=== PATIENT | female | born 1985 | race Caucasian/White ===

== ENCOUNTER 2017-03-08 12:45 | Outpatient (CLI) | payer MEDICAID ==
[~2017-03-08] VITALS: Ht 167.6 cm; Wt 67.0 kg
[2017-03-08 13:43] VITALS: BP 103/56
== END 2017-03-08 15:17 | disposition home or self-care (01) ==
LOC: LDOP 12:45
PROVIDERS: ATTEND Obstetrics & Gynecology
DX: O26.893 Other specified pregnancy related conditions, third trimester (principal); M54.9 Dorsalgia, unspecified; R10.30 Lower abdominal pain, unspecified; H53.8 Other visual disturbances; Z3A.34 34 weeks gestation of pregnancy
CPT/HCPCS: 59025; 99201; G0463

== ENCOUNTER 2017-03-21 16:37 | Outpatient (CLI) | payer MEDICAID ==
[~2017-03-21] VITALS: Ht 167.6 cm; Wt 67.3 kg
[2017-03-21 17:07] VITALS: BP 113/64
== END 2017-03-21 18:41 | disposition home or self-care (01) ==
LOC: LDOP 16:37
PROVIDERS: ATTEND Obstetrics & Gynecology
DX: O62.9 Abnormality of forces of labor, unspecified (principal); Z3A.36 36 weeks gestation of pregnancy
CPT/HCPCS: 59025; 81003; 87086; 99211; G0463

== ENCOUNTER 2017-04-08 02:23 | Inpatient (IN) | payer MEDICAID ==
[~2017-04-08] VITALS: Ht 167.6 cm; Wt 68.3 kg
[2017-04-08] MEDS ORDERED: OXYTOCIN 30U/ 0.9% NaCL 500ML 500 ML IV SCH (02:50)
[2017-04-08] MEDS ORDERED: LACTATED RINGERS 1,000 ML IV SCH (02:50)
[2017-04-08] MEDS ORDERED: SODIUM CITRATE/CITRIC ACID 30 ML UDC ONE (02:58)
[2017-04-08] MEDS ORDERED: METOCLOPRAMIDE 5 MG/ML, 2ML ONE (02:58)
[2017-04-08 03:00] VITALS: BP 125/73
[2017-04-08] MEDS ORDERED: LACTATED RINGERS 1,000 ML IVBOLUS ONE (03:00)
[2017-04-08] MEDS ORDERED: CALCIUM CARBONATE 500 MG TAB.CHEW PO PRN ×2 (03:00→05:30)
[2017-04-08] MEDS ORDERED: CEFAZOLIN PMX 1GM/50ML 50 ML IVPB ONE (03:00)
[2017-04-08] MEDS ORDERED: ONDANSETRON 2MG/ML, 2ML IVPush ONE (03:00)
[2017-04-08] MEDS ORDERED: SODIUM CITRATE/CITRIC ACID 30 ML UDC PO ONE (03:00)
[2017-04-08] MEDS ORDERED: METOCLOPRAMIDE 5 MG/ML, 2ML IV ONE (03:00)
[2017-04-08 03:16] LABS: HEMATOCRIT 32.4 % (34.6-47.8); HEMOGLOBIN 10.9 g/dL (11.7-16.4); WHITE BLOOD COUNT 9.7 x10^3/uL (3.4-10)
[2017-04-08] MEDS ORDERED: FENTANYL PF 100 MCG/2ML ONE (03:19)
[2017-04-08] MEDS ORDERED: OXYTOCIN 30U/ 0.9% NaCL 500ML 500 ML ONE (03:35)
[2017-04-08] MEDS ORDERED: CEFAZOLIN 1,000 MG ONE (04:00)
[2017-04-08] MEDS ORDERED: morphine SULFATE/PF 1 MG/ML, 10ML ONE (04:00)
[2017-04-08] MEDS ORDERED: FENTANYL PF 100 MCG/2ML IVPush PRN (04:00)
[2017-04-08] MEDS ORDERED: PROPOFOL 10 MG/ML, 20ML ONE (04:00)
[2017-04-08] MEDS: LACTATED RINGERS 1,000 ML IV SCH ×4 (05:14→16:39)
[2017-04-08] MEDS ORDERED: SIMETHICONE 80 MG CHEW TAB PO PRN (05:30)
[2017-04-08] MEDS ORDERED: morphine SULFATE 10 MG/ML, 1ML IVPush PRN ×2 (05:30)
[2017-04-08] MEDS: ACETAMINOPHEN 325 MG TABLET PO SCH ×3 (05:30→17:30)
[2017-04-08] MEDS: IBUPROFEN 600 MG TABLET PO SCH ×3 (05:30→17:30)
[2017-04-08] MEDS ORDERED: BISACODYL 10 MG SUPP PR PRN (05:30)
[2017-04-08] MEDS ORDERED: MISOPROSTOL 200 MCG TABLET PR PRN (05:30)
[2017-04-08] MEDS ORDERED: ONDANSETRON 2MG/ML, 2ML IV PRN (05:30)
[2017-04-08] MEDS: OXYTOCIN 30U/ 0.9% NaCL 500ML 500 ML IV SCH ×2 (05:34→15:14)
[2017-04-08] MEDS ORDERED: KETOROLAC 30 MG/1 ML ONE (05:48)
[2017-04-08] MEDS: KETOROLAC 30 MG/1 ML IV SCH ×3 (06:11→18:18)
[2017-04-08 07:00] VITALS: BP 115/74
[2017-04-08] MEDS: PRENATAL VIT/IRON/FA 1 EACH TABLET PO SCH (09:00)
[2017-04-08] MEDS: OXYcodone IR 5MG TABLET PO PRN ×3 (09:14→21:23)
[2017-04-08 13:00] VITALS: BP 124/74
[2017-04-08 13:12] LABS: HEMATOCRIT 28.7 % (34.6-47.8); HEMOGLOBIN 9.9 g/dL (11.7-16.4)
[2017-04-08 16:00] VITALS: BP 114/66
[2017-04-08 20:00] VITALS: BP 113/68
[2017-04-08] MEDS ORDERED: DIPH,PERTUSS(ACELL),TET VAC/PF NC IM-VACC ONE (20:30)
[2017-04-08] MEDS: DOCUSATE 100 MG CAPSULE PO PRN (21:22)
[2017-04-08] MEDS ORDERED: ACETAMINOPHEN 325 MG TABLET PO PRN (23:30)
[2017-04-09 00:40] VITALS: BP 116/69
[2017-04-09] MEDS: IBUPROFEN 600 MG TABLET PO PRN ×4 (00:59→20:06)
[2017-04-09] MEDS: OXYcodone IR 5MG TABLET PO PRN ×4 (00:59→20:06)
[2017-04-09] MEDS: OXYTOCIN 30U/ 0.9% NaCL 500ML 500 ML IV SCH ×3 (01:14→21:14)
[2017-04-09] MEDS: LACTATED RINGERS 1,000 ML IV SCH ×3 (01:14→21:14)
[2017-04-09] MEDS ORDERED: IBUP-1222 PO (01:32)
[2017-04-09] MEDS ORDERED: DOCU-131 PO (01:33)
[2017-04-09] MEDS ORDERED: OXYC-302 PO (01:33)
[2017-04-09 07:05] VITALS: BP 114/73
[2017-04-09] MEDS: DOCUSATE 100 MG CAPSULE PO PRN ×2 (07:53→20:06)
[2017-04-09] MEDS: PRENATAL VIT/IRON/FA 1 EACH TABLET PO SCH (07:53)
[2017-04-09] MEDS ORDERED: FERROUS GLUCONATE 324 MG TABLET PO SCH (17:00)
[2017-04-09 20:00] VITALS: BP 107/67
[2017-04-10] MEDS: OXYcodone IR 5MG TABLET PO PRN ×3 (02:06→13:53)
[2017-04-10] MEDS: IBUPROFEN 600 MG TABLET PO PRN ×3 (02:06→13:53)
[2017-04-10] MEDS: LACTATED RINGERS 1,000 ML IV SCH (07:14)
[2017-04-10] MEDS: OXYTOCIN 30U/ 0.9% NaCL 500ML 500 ML IV SCH (07:14)
[2017-04-10 07:35] VITALS: BP 114/67
[2017-04-10] MEDS: PRENATAL VIT/IRON/FA 1 EACH TABLET PO SCH (08:19)
[2017-04-10] MEDS: DOCUSATE 100 MG CAPSULE PO PRN (08:19)
== END 2017-04-10 14:42 | disposition home or self-care (01) | DRG 766 ==
LOC: LDOP 02:23 → LDIP 02:56 → 2NW 06:50
PROVIDERS: ADMIT Obstetrics & Gynecology; ATTEND Obstetrics & Gynecology
PROC: 10D00Z1 Extraction of Products of Conception, Low, Open Approach (ICD-10-PCS; principal; 2017-04-08)
PROC: 30233S1 Transfusion of Nonautologous Globulin into Peripheral Vein, Percutaneous Approach (ICD-10-PCS; 2017-04-08)
DX: O34.211 Maternal care for low transverse scar from previous cesarean delivery (principal); O69.81X0 Labor and delivery complicated by cord around neck, without compression, not applicable or unspecified; Z37.0 Single live birth; Z3A.38 38 weeks gestation of pregnancy; Z80.49 Family history of malignant neoplasm of other genital organs; Z83.3 Family history of diabetes mellitus
CPT/HCPCS: 36415; 85025; 85460; 85461; 86850; 86870; 86900; 86922; 86923; 89060; 90715; J0690; J1885; J2274; J2704; J2790; J3010; J2590; J2765; J7120; Q0114